=== PATIENT | male | born 1995 | race Caucasian/White ===

== ENCOUNTER 2018-12-20 05:02 | Observation (INO) ==
[2018-12-20 05:22] LABS: Hematocrit 41.2 % (37.5-50.1); Hemoglobin 14.9 g/dL (12.9-16.9); Mean Corpuscular HGB Conc 36.2 g/dL (31.6-35.5); Mean Corpuscular Hemoglobin 29.3 pg (28.0-33.3); Mean Corpuscular Volume 80.9 fL (83.0-100.0); Platelet Count 192 K/mcL (140-400); Red Blood Count 5.09 M/mcL (4.19-5.50); Red Cell Distribution Width 11.9 % (11.5-14.5)
[2018-12-20 05:25] LABS: VBG HCO3 17 mEq/L (21-27); VBG PCO2 21 mmHg (41-51); VBG PH 7.52 pH Units (7.32-7.42); VBG PO2 48 mmHg (25-50)
[2018-12-20 05:30] LABS: INR 1.1; Prothrombin Time 12.5 Seconds (9.4-12.1)
[2018-12-20 05:33] LABS: Activated Partial Thrombo Time 29.7 Seconds (26.0-36.0)
--- NOTE | 2018-12-20 05:33 | Emergency Department Note ---
Disposition Clinical Impression: New onset seizure, Hypophosphatemia, Tourette syndrome Disposition: Admitted As Inpatient Condition: Fair Forms: ED Satisfaction Letter General Adult HPI - General Chief complaint: ED Altered Mental Status Time Seen by Provider: 12/20/18 05:15 Source: EMS Limitations: altered mental status - History of Present Illness Pain Scale: 0 - Related Data Home Medications Medication Instructions Recorded Confirmed Unable To Obtain [Unable to Obtain] 09/20/17 09/20/17 Allergies Allergy/AdvReac Type Severity Reaction Status Date / Time Unable to Assess Allergy Unverified 12/20/18 05:11 Past Medical History - Past Medical History Medical history: Reports: non-contributory, other Psychiatric history: Reports: no psych history - Social History Smoking Status: Never smoker Smokeless Tobacco Status: No Alcohol use: Reports: none Drug use: Reports: none Physical Exam - General Limitations: altered mental status General appearance: obtunded Course Vital Signs Temperature 98.6 F 12/20/18 05:02 Pulse Rate 156 12/20/18 05:02 Respiratory Rate 40 12/20/18 05:02 Blood Pressure 155/68 12/20/18 05:02 O2 Sat by Pulse Oximetry 100 12/20/18 05:02 Temperature 98.6 F 12/20/18 05:02 Pulse Rate 156 12/20/18 05:02 Respiratory Rate 40 12/20/18 05:02 Blood Pressure 155/68 12/20/18 05:02 O2 Sat by Pulse Oximetry 100 12/20/18 05:02 Oxygen Delivery Oxygen Delivery Non Rebreather Mask Medical Decision Making - Lab Data Result diagrams: 12/20/18 05:06 12/20/18 05:06 Lab Results 12/20/18 12/20/18 12/20/18 Range/Units 05:06 05:06 05:06 WBC 6.0 (4.3-11.1) K/mcL RBC 5.09 (4.19-5.50) M/mcL Hgb 14.9 (12.9-16.9) g/dL Hct 41.2 (37.5-50.1) % MCV 80.9 L (83.0-100.0) fL MCH 29.3 (28.0-33.3) pg MCHC 36.2 H (31.6-35.5) g/dL RDW 11.9 (11.5-14.5) % Plt Count 192 (140-400) K/mcL MPV 11.0 (9.4-12.4) fL PT 12.5 H (9.4-12.1) Seconds INR 1.1 APTT 29.7 (26.0-36.0) Seconds VBG pH (7.32-7.42) pH Units VBG pCO2 (41-51) mmHg VBG pO2 (25-50) mmHg VBG HCO3 (21-27) mEq/L Sodium 139 (136-145) mEq/L Potassium 2.9 L (3.5-5.1) mEq/L Chloride 100 (98-107) mEq/L Carbon Dioxide 18 L (23-29) mEq/L BUN 10 (6-20) mg/dL Creatinine 1.04 (0.70-1.30) mg/dL Est GFR ( Amer) > 60 (> 60) Est GFR (Non-Af Amer) > 60 (> 60) BUN/Creatinine Ratio 10 (6-26) Glucose 117 H (70-105) mg/dL Calculated Osmolality 288 (280-300) Calcium 9.9 (8.6-10.3) mg/dL Phosphorus < 1.0 L* (2.7-4.5) mg/dL Magnesium 1.7 (1.6-2.6) mg/dL Total Bilirubin 1.9 H (0.3-1.0) mg/dL Direct Bilirubin 0.4 H (0.0-0.2) mg/dL Indirect Bilirubin 1.5 H (0.0-1.2) mg/dL AST 12 L (13-39) Units/L ALT 14 (7-52) Units/L Alkaline Phosphatase 57 (34-104) Units/L Troponin I < 0.03 (< 0.04) ng/mL Serum Total Protein 7.9 (6.4-8.9) g/dL Albumin 5.1 (3.5-5.7) g/dL Globulin 2.8 (2.4-3.5) g/dL Albumin/Globulin Ratio 1.8 (1.1-2.2) Ethyl Alcohol < 10 (Less than 10) mg/dL 12/20/18 Range/Units 05:22 WBC (4.3-11.1) K/mcL RBC (4.19-5.50) M/mcL Hgb (12.9-16.9) g/dL Hct (37.5-50.1) % MCV (83.0-100.0) fL MCH (28.0-33.3) pg MCHC (31.6-35.5) g/dL RDW (11.5-14.5) % Plt Count (140-400) K/mcL MPV (9.4-12.4) fL PT (9.4-12.1) Seconds INR APTT (26.0-36.0) Seconds VBG pH 7.52 H (7.32-7.42) pH Units VBG pCO2 21 L (41-51) mmHg VBG pO2 48 (25-50) mmHg VBG HCO3 17 L (21-27) mEq/L Sodium (136-145) mEq/L Potassium (3.5-5.1) mEq/L Chloride (98-107) mEq/L Carbon Dioxide (23-29) mEq/L BUN (6-20) mg/dL Creatinine (0.70-1.30) mg/dL Est GFR ( Amer) (> 60) Est GFR (Non-Af Amer) (> 60) BUN/Creatinine Ratio (6-26) Glucose (70-105) mg/dL Calculated Osmolality (280-300) Calcium (8.6-10.3) mg/dL Phosphorus (2.7-4.5) mg/dL Magnesium (1.6-2.6) mg/dL Total Bilirubin (0.3-1.0) mg/dL Direct Bilirubin (0.0-0.2) mg/dL Indirect Bilirubin (0.0-1.2) mg/dL AST (13-39) Units/L ALT (7-52) Units/L Alkaline Phosphatase (34-104) Units/L Troponin I (< 0.04) ng/mL Serum Total Protein (6.4-8.9) g/dL Albumin (3.5-5.7) g/dL Globulin (2.4-3.5) g/dL Albumin/Globulin Ratio (1.1-2.2) Ethyl Alcohol (Less than 10) mg/dL Attestation Statement - Attestation Attestation: I examined this patient and my medical decision-making was reviewed with the Resident Physician. I agree with the documented findings, disposition and treatment plan as described except to the extent set forth below. Patient arrives via paramedics with suspected seizure, no known history of seizure disorder. Was standing outside talking to one of his coworkers at 4 AM when he complained of lightheadedness which was followed by a period of altered mental status, then by but the paramedics described as a generalized tonic- clonic seizure. On arrival here, there is no movement of his legs, but he does have rhythmic shaking of both arms and was unresponsive to verbal stimuli. However, when I gave him a sternal rub, the arm movements immediately stopped, he opened his eyes widely, and began to sit up in bed. Within a few seconds afterwards, shaking activity started again. Both eyes deviated upward and to the right during shaking episode. No signs of tongue biting. Does not appear to have been incontinent. Blood sugar 79. Narrow complex tachycardia in the 150s in the field and on arrival here, gradually came down with administration of benzodiazepines. Sinus tachycardia on EKG without any ST segment or T-wave changes. Patient taken emergently to CT scan, accompanied by Dr. Pa and myself, intubation equipment brought with us in case he decompensated. On my first glance in the CT suite, no signs of subarachnoid hemorrhage or midline shift on the CT scan, radiology interpretation pending. On arrival back to the ED, he has now been free of any seizure-like activity for approximately 15 minutes, heart rate is down into the 100s. CT head neg per radiology. Phosphorous critically low <1.0. K+ 2.9, likely stress reaction. KPO4 infusion ordered. No urine yet, asked RN for straight cath. Parents have arrived, updated them, they confirm no prior seizure hx. Paged hospitalist and neurology to facilitate admission. Critical care time: I was directly and primarily involved in the care of this pt for 35 minutes excluding procedures.
[2018-12-20 05:46] LABS: Alanine Aminotransferase 14 Units/L (7-52); Albumin 5.1 g/dL (3.5-5.7); Albumin/Globulin Ratio 1.8 (1.1-2.2); Alkaline Phosphatase 57 Units/L (34-104); Aspartate Amino Transferase 12 Units/L (13-39); BUN/Creatinine Ratio 10 (6-26); Bilirubin,Direct 0.4 mg/dL (0.0-0.2); Bilirubin,Indirect 1.5 mg/dL (0.0-1.2); Bilirubin,Total 1.9 mg/dL (0.3-1.0); Blood Urea Nitrogen 10 mg/dL (6-20); Calcium 9.9 mg/dL (8.6-10.3); Carbon Dioxide 18 mEq/L (23-29); Chloride 100 mEq/L (98-107); Ethanol < 10 mg/dL (Less than 10); Globulin 2.8 g/dL (2.4-3.5); Glucose 117 mg/dL (70-105); Magnesium 1.7 mg/dL (1.6-2.6); Osmolality,Calculated 288 (280-300); Phosphorous < 1.0 mg/dL (2.7-4.5); Potassium 2.9 mEq/L (3.5-5.1); Sodium 139 mEq/L (136-145); Total Protein 7.9 g/dL (6.4-8.9); Troponin I < 0.03 ng/mL (< 0.04); eGFR For Non-African Americans > 60 (> 60)
[2018-12-20] MEDS ORDERED: Potassium Phosphate 44 MEQ in 0.9 % Sodium Chloride 250 ML IVPB ONE (05:50)
[2018-12-20] MEDS ORDERED: Gadolinium Contrast Agent (WT Based) IV PRN (05:54)
--- NOTE | 2018-12-20 05:58 | Emergency Department Note ---
Disposition Clinical Impression: New onset seizure, Hypophosphatemia, Tourette syndrome, Seizure-like activity Disposition: Admitted As Inpatient Condition: Fair Referrals: NONE,PCP [Primary Care Provider] - Time of Disposition: 06:15 General Adult HPI - General Chief complaint: ED Altered Mental Status Stated complaint: uresponsive/seizure activity Time Seen by Provider: 12/20/18 05:15 Source: EMS Mode of arrival: ambulatory Limitations: altered mental status Nursing Notes Reviewed: Yes Vital Signs Reviewed: Yes - History of Present Illness HPI Narrative: Patient is a 23-year-old male with a past medical history of Tourette's presents to the emergency department for evaluation of seizure-like activity. According to patient's coworkers he arrived to work at a normal baseline and a proximally 40 minutes prior to arrival to the ED the patient began to complain of lightheadedness, and began having seizure-like activity and which both arms were flexed to his chest with tonic-clonic like activity. This lasted for approximately 10 minutes that that point the patient arrived to the ED. IV was established and is given Pain Scale: 0 - Related Data Home Medications Medication Instructions Recorded Confirmed Unable To Obtain [Unable to Obtain] 09/20/17 09/20/17 Allergies Allergy/AdvReac Type Severity Reaction Status Date / Time No Known Allergies Allergy Verified 12/20/18 06:43 Limitations: ROS unobtainable due to patients medical condition Past Medical History - Past Medical History Medical history: Reports: non-contributory, other Psychiatric history: Reports: no psych history - Social History Smoking Status: Never smoker Smokeless Tobacco Status: No Alcohol use: Reports: none Drug use: Reports: none Physical Exam - General Limitations: altered mental status General appearance: obtunded - Head Head exam: atraumatic, normocephalic, normal inspection - Eye Eye exam: Present: normal appearance, PERRL - ENT ENT exam: normal exam, normal oropharynx, mucous membranes moist - Neck Neck exam: Present: normal inspection, full ROM, trachea midline - Chest Chest inspection: Present: normal inspection, symmetric chest wall rise - Respiratory Respiratory exam: Present: normal lung sounds bilaterally. Absent: respiratory distress, wheezes - Cardiovascular Cardiovascular exam: Present: tachycardia, normal heart sounds, +S1, +S2 - Abdominal Exam Abdominal exam: Present: soft, Non-Tender. Absent: tenderness, distention, guarding, rebound, rigidity - Extremities Exam Extremities exam: Present: normal inspection, full ROM, normal capillary refill. Absent: tenderness - Back Exam Back exam: Present: normal inspection - Expanded Neurological Exam Patient oriented to: Present: person, time (post-ictal) Speech: Present: fluid speech Cranial nerves: EOM function (II, III, IV, ): Normal Motor strength - LUE: 4/5 Motor strength - RUE: 4/5 Motor strength - LLE: 4/5 Motor strength - RLE: 4/5 Coma Scale Eye Opening: To Voice Coma Scale Motor Response: Localizes to Pain Coma Scale Verbal Response: Confused Coma Scale Total: 12 - Skin Skin exam: Present: warm, dry, intact, normal color Course Course Narrative: Patient initially presented immersed department what appeared to be seizure-like activity with both arms flexed and eye deviation to the right. However, with sternal rubbing the patient would pop up and sit up in the bed but then continue back into the seizure-like activity. He received 2 mg of IV Versed which broke his seizure. He did not appear to be in a somewhat postictal state. He followed commands and open his eyes to voice. Throughout the seizure-like activity he was very tachycardic at 140 and he is also intermittently hypoxic down to the upper 70s which improved with oxygenation. Patient went to a stat head CT which was negative. His lab workup revealed a significant hypophosphatemia. I discussed the patient's case further with the patient's parents when they arrived they state that the patient is not been complaining of any illness like symptoms and no seizure disorder or recent medication changes. The patient continues to be seizure activity free. I discussed the patient's case with Dr. Peñaloza, he agrees to consult with the patient and recommends MRI as well as an EEG to evaluate for further seizure activity otherwise hold on antiepileptics at this time and urine benzos for further seizure-like activity. Discussed patient's case with Dr. Mera and he agreed to accept the patient. Vital Signs Temperature 98.6 F 12/20/18 05:02 Pulse Rate 156 12/20/18 05:02 Respiratory Rate 40 12/20/18 05:02 Blood Pressure 155/68 12/20/18 05:02 O2 Sat by Pulse Oximetry 100 12/20/18 05:02 Temperature 98.6 F 12/20/18 05:02 Pulse Rate 112 12/20/18 06:32 Respiratory Rate 14 12/20/18 06:32 Blood Pressure 132/82 12/20/18 06:32 O2 Sat by Pulse Oximetry 100 12/20/18 06:32 Oxygen Delivery Oxygen Delivery Room Air Medical Decision Making - Medical Records Medical records reviewed: Yes I reviewed the patient's medical records. - Lab Data Lab results reviewed: Yes I reviewed the patient's lab results. Result diagrams: 12/20/18 05:06 12/20/18 05:06 Lab Results 12/20/18 12/20/18 12/20/18 Range/Units 05:06 05:06 05:06 WBC 6.0 (4.3-11.1) K/mcL RBC 5.09 (4.19-5.50) M/mcL Hgb 14.9 (12.9-16.9) g/dL Hct 41.2 (37.5-50.1) % MCV 80.9 L (83.0-100.0) fL MCH 29.3 (28.0-33.3) pg MCHC 36.2 H (31.6-35.5) g/dL RDW 11.9 (11.5-14.5) % Plt Count 192 (140-400) K/mcL MPV 11.0 (9.4-12.4) fL PT 12.5 H (9.4-12.1) Seconds INR 1.1 APTT 29.7 (26.0-36.0) Seconds VBG pH (7.32-7.42) pH Units VBG pCO2 (41-51) mmHg VBG pO2 (25-50) mmHg VBG HCO3 (21-27) mEq/L Sodium 139 (136-145) mEq/L Potassium 2.9 L (3.5-5.1) mEq/L Chloride 100 (98-107) mEq/L Carbon Dioxide 18 L (23-29) mEq/L BUN 10 (6-20) mg/dL Creatinine 1.04 (0.70-1.30) mg/dL Est GFR ( Amer) > 60 (> 60) Est GFR (Non-Af Amer) > 60 (> 60) BUN/Creatinine Ratio 10 (6-26) Glucose 117 H (70-105) mg/dL Calculated Osmolality 288 (280-300) Calcium 9.9 (8.6-10.3) mg/dL Phosphorus < 1.0 L* (2.7-4.5) mg/dL Magnesium 1.7 (1.6-2.6) mg/dL Total Bilirubin 1.9 H (0.3-1.0) mg/dL Direct Bilirubin 0.4 H (0.0-0.2) mg/dL Indirect Bilirubin 1.5 H (0.0-1.2) mg/dL AST 12 L (13-39) Units/L ALT 14 (7-52) Units/L Alkaline Phosphatase 57 (34-104) Units/L Troponin I < 0.03 (< 0.04) ng/mL Serum Total Protein 7.9 (6.4-8.9) g/dL Albumin 5.1 (3.5-5.7) g/dL Globulin 2.8 (2.4-3.5) g/dL Albumin/Globulin Ratio 1.8 (1.1-2.2) TSH 0.606 (0.340-5.600) mcIU/mL Urine Color (Yellow) Urine Clarity (Clear) Urine pH (5.0-8.0) pH Units Ur Specific [place] (1.010-1.025) Urine Protein (Neg-Trace) mg/dL Urine Glucose (UA) (Normal) mg/dL Urine Ketones (Negative) mg/dL Urine Blood (Negative) Urine Nitrite (Negative) Urine Bilirubin (Negative) Urine Urobilinogen (Normal) mg/dL Ur Leukocyte Esterase (Negative) Ur Culture Indicated? (NO) Urine Opiates Screen (Vatsjb=234) ng/mL Ur Barbiturates Screen (Fmmgcv=497) ng/mL Ur Phencyclidine Scrn (Cutoff=25) ng/mL Ur Amphetamines Screen (Ntcwlk=7562) ng/mL U Benzodiazepines Scrn (Tpxcbt=817) ng/mL Urine Cocaine Screen (Cutoff= 300) ng/mL U Marijuana (THC) Screen (Cutoff = 50) ng/mL Ur Drug Screen Interp Ethyl Alcohol < 10 (Less than 10) mg/dL 12/20/18 12/20/18 12/20/18 Range/Units 05:22 06:02 06:02 WBC (4.3-11.1) K/mcL RBC (4.19-5.50) M/mcL Hgb (12.9-16.9) g/dL Hct (37.5-50.1) % MCV (83.0-100.0) fL MCH (28.0-33.3) pg MCHC (31.6-35.5) g/dL RDW (11.5-14.5) % Plt Count (140-400) K/mcL MPV (9.4-12.4) fL PT (9.4-12.1) Seconds INR APTT (26.0-36.0) Seconds VBG pH 7.52 H (7.32-7.42) pH Units VBG pCO2 21 L (41-51) mmHg VBG pO2 48 (25-50) mmHg VBG HCO3 17 L (21-27) mEq/L Sodium (136-145) mEq/L Potassium (3.5-5.1) mEq/L Chloride (98-107) mEq/L Carbon Dioxide (23-29) mEq/L BUN (6-20) mg/dL Creatinine (0.70-1.30) mg/dL Est GFR ( Amer) (> 60) Est GFR (Non-Af Amer) (> 60) BUN/Creatinine Ratio (6-26) Glucose (70-105) mg/dL Calculated Osmolality (280-300) Calcium (8.6-10.3) mg/dL Phosphorus (2.7-4.5) mg/dL Magnesium (1.6-2.6) mg/dL Total Bilirubin (0.3-1.0) mg/dL Direct Bilirubin (0.0-0.2) mg/dL Indirect Bilirubin (0.0-1.2) mg/dL AST (13-39) Units/L ALT (7-52) Units/L Alkaline Phosphatase (34-104) Units/L Troponin I (< 0.04) ng/mL Serum Total Protein (6.4-8.9) g/dL Albumin (3.5-5.7) g/dL Globulin (2.4-3.5) g/dL Albumin/Globulin Ratio (1.1-2.2) TSH (0.340-5.600) mcIU/mL Urine Color Yellow (Yellow) Urine Clarity Clear (Clear) Urine pH 7.0 (5.0-8.0) pH Units Ur Specific [place] < 1.005 L (1.010-1.025) Urine Protein Negative (Neg-Trace) mg/dL Urine Glucose (UA) Normal (Normal) mg/dL Urine Ketones 15 H (Negative) mg/dL Urine Blood Negative (Negative) Urine Nitrite Negative (Negative) Urine Bilirubin Negative (Negative) Urine Urobilinogen Normal (Normal) mg/dL Ur Leukocyte Esterase Negative (Negative) Ur Culture Indicated? NO (NO) Urine Opiates Screen Negative (Vianzv=052) ng/mL Ur Barbiturates Screen Negative (Fabfek=085) ng/mL Ur Phencyclidine Scrn Negative (Cutoff=25) ng/mL Ur Amphetamines Screen Negative (Cofcxh=4935) ng/mL U Benzodiazepines Scrn Negative ([place]=572) ng/mL Urine Cocaine Screen Negative (Cutoff= 300) ng/mL U Marijuana (THC) Screen Negative (Cutoff = 50) ng/mL Ur Drug Screen Interp See Below Ethyl Alcohol (Less than 10) mg/dL - Radiology Data Radiology results reviewed: Yes I reviewed the patient's radiology results. Chest X-Ray 12/20/18 05:12 IMPRESSION: No acute findings. D/ / Gildardo Kim / Gildardo Kim Interpreting Provider: Gildardo Kim Head CT 12/20/18 05:14 IMPRESSION: No acute intracranial abnormality. D/ / Gildardo Kim / Gildardo Kim Interpreting Provider: Gildardo Kim - EKG Data EKG #1 EKG attestation: Yes I reviewed and interpreted this EKG. EKG results narrative: EKG done at 5:07 shows sinus tachycardia rate 143 bpm. Normal axis. [place], QRS within normal limits. QTc is prolonged. No signs of ischemia.
[2018-12-20 06:01] LABS: Thyroid Stimulating Hormone 0.606 mcIU/mL (0.340-5.600)
[2018-12-20 06:21] LABS: Bilirubin,Urine Negative (Negative); Blood,Urine Negative (Negative); Clarity,Urine Clear (Clear); Color,Urine Yellow (Yellow); Glucose,Urine (UA) Normal (Normal); Ketones,Urine 15 mg/dL (Negative); Leukocyte Esterase,Urine Negative (Negative); Nitrite,Urine Negative (Negative); Protein,Urine Negative (Neg-Trace); Specific Gravity,Urine < 1.005 (1.010-1.025); Urobilinogen,Urine Normal (Normal)
[2018-12-20 06:27] LABS: Amphetamine Screen,Urine Negative ng/mL (Cutoff=1000); Barbiturate Screen,Urine Negative ng/mL (Cutoff=200)
[2018-12-20 06:28] LABS: Benzodiazepines Screen,Urine Negative ng/mL (Cutoff=300); Cannabinoid Screen,Urine Negative ng/mL (Cutoff = 50); Cocaine Screen,Urine Negative ng/mL (Cutoff= 300); Opiate Screen,Urine Negative ng/mL (Cutoff=300); Phencyclidine Screen,Urine Negative ng/mL (Cutoff=25)
[2018-12-20] MEDS ORDERED: *HR* Midazolam HCl 5 MG/5 ML VIAL IVP ONE (06:30)
[2018-12-20] MEDS ORDERED: *HR* Midazolam HCl 2 MG/2 ML VIAL IV ONE (06:30)
[2018-12-20] MEDS ORDERED: Naloxone 0.4 MG/ML INJ IVP PRN (07:54)
--- NOTE | 2018-12-20 08:10 | Internal Med History&Physical ---
Date of Encounter: 12/20/18 Time of Encounter: 08:06 Internal Medicine - H&P: HPI Chief complaint: seizure like activity Admitted From: Home Plans for Post Hospital Care: Home History of present illness: Mr. Painting is a 23 year old male with the past medical history of towards syndrome presented to ER with seizure-like activity after he passed out. 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 Patient was reportedly talking and standing with a coworker for about 20 minutes. According to coworker patient was nonresponsive for about 30 seconds and was altered for next one and half hour. Patient was noted to be sweating at the time. Patient was noted to have seizure-like activity with movement of arms and eye deviation to the right. However was noted to sit up on sternal rub and continue back into seizure-like activity after. Patient received 2 mg of Versed in ER and did not have any other seizure-like activity after. He was tachycardic in ER and slightly hypoxic. He had some difficulty breathing before the episode. There was no episode of incontinence of urine or stool or tongue biting noted. Yumiko t had a workup done in ER with head CT which was unremarkable and BMP showing significant hypophosphatemia and hypokalemia. There is no history of seizures in past. Patient has been prescribed medication for correct which has been not taking for past few months. He denies IV drug use or other drug use. He denied taking any new medication During interview patient complains of some headache and feeling tired and sore. He denies any tingling numbness however previously he had some tingling in his arms when he came in. Denied any abdominal pain or chest pain or difficulty breathing. Denies urinary or bladder complaint. ER contacted neurology who recommended MRI and EEG. Patient was admitted for further management. Past Med Surg Social Fam HX - Past Medical History Medical history: other Additional medical history: tourettes Psychiatric history: no psych history - Past Surgical History Surgical History: no surgical history - Social History Smoking Status: Never smoker Smokeless Tobacco Status: No Alcohol use: occasionally Drug use: none - Family History Mother Hx Family Neurologic Disorders: No (no history of epilepsy or seizures) Father Hx Family Neurologic Disorders: No (no history of epilepsy or seizures) Internal Medicine - H&P: Meds Unable To Obtain [Unable to Obtain] 09/20/17 [History] Allergy/AdvReac Type Severity Reaction Status Date / Time No Known Allergies Allergy Verified 12/20/18 06:43 All Systems PM: A 10-system review of systems was performed and is negative for pertinent findings except as documented above in the HPI. - Constitutional Vitals: Temp Pulse Resp BP Pulse Ox 98.6 F 112 14 132/82 100 12/20/18 05:02 12/20/18 06:32 12/20/18 06:32 12/20/18 06:32 12/20/18 06:32 Exam: Constitutional: Vitals as noted. Conversant. No Apparent Distress. Eyes : Sclera white, conjunctiva clear, no lid lag, PEARLA. ENT : Grossly normal hearing. Oropharyngeal exam unremarkable. No JVD, no thyromegaly or mass. Respiratory : Clear to auscultation bilaterally. No accessory muscle use, rales, rhonchi or wheezes Cardiovascular : tachycardic, +S1, +S2. no murmur, gallop, rubs. No chest wall tenderness GI/Abdominal : Soft, Non-tender, Non-distended, normal bowel sounds, soft, no peritoneal signs. no orgenomegaly or mass appreciated. no hernia. Musculoskeletal: no deformity noted. no edema or cyanosis. warm extremities, pulses palpable and symmetrical in UE/LE. no calf tenderness. Neurological: AO X3, CN II-XII grossly intact, grossly normal sensory exam. 4/5 strength in all extremities Skin: No skin rash, lesions or ulcers noted. Internal Med - H&P Results - Labs CBC & Chem 7: 12/20/18 05:06 12/20/18 05:06 Labs: Short CBC 12/20/18 Range/Units 05:06 WBC 6.0 (4.3-11.1) K/mcL Hgb 14.9 (12.9-16.9) g/dL Hct 41.2 (37.5-50.1) % Plt Count 192 (140-400) K/mcL BMP 12/20/18 05:06 Sodium 139 Potassium 2.9 L Chloride 100 Carbon Dioxide 18 L BUN 10 Creatinine 1.04 Glucose 117 H Calcium 9.9 Cardiac Enzymes 12/20/18 Range/Units 05:06 Troponin I < 0.03 (< 0.04) ng/mL Liver Function 12/20/18 Range/Units 05:06 Total Bilirubin 1.9 H (0.3-1.0) mg/dL Direct Bilirubin 0.4 H (0.0-0.2) mg/dL AST 12 L (13-39) Units/L ALT 14 (7-52) Units/L Alkaline Phosphatase 57 (34-104) Units/L Albumin 5.1 (3.5-5.7) g/dL Urine 12/20/18 Range/Units 06:02 Urine Color Yellow (Yellow) Urine Clarity Clear (Clear) Urine pH 7.0 (5.0-8.0) pH Units Ur Specific [place] < 1.005 L (1.010-1.025) Urine Protein Negative (Neg-Trace) mg/dL Urine Glucose (UA) Normal (Normal) mg/dL - ABG Interpretation ABG results: 12/20/18 05:22 VBG pH 7.52 H VBG pCO2 21 L VBG pO2 48 VBG HCO3 17 L - EKG Data -: EKG Interpreted by Myself EKG shows normal: sinus rhythm Rate: tachycardia - Impressions ITS Impressions Chest X-Ray 12/20/18 05:12 IMPRESSION: No acute findings. D/ / Gildardo Kim / Gildardo Kim Interpreting Provider: Gildardo Kim Head CT 12/20/18 05:14 IMPRESSION: No acute intracranial abnormality. D/ / Gildardo Kim / Gildardo Kim Interpreting Provider: Gildardo Kim Brain MRI 12/20/18 05:54 IMPRESSION: Normal MRI of the brain without findings to explain the patient's seizures. D/ / Adriel Floyd MD / Adriel Floyd MD Interpreting Provider: Adriel Floyd MD - Assessment and plan (1) Seizure-like activity Current Visit: Yes Status: Acute Assessment and plan: - CT without evidence of any acute intracranial abnormality. Magnesium and calcium normal. Has hypokalemia and hypophosphatemia. - U tox negative - We will obtain EEG and MRI - Possibly related to severe hypophosphatemia - Neurology consulted (2) Hypokalemia Current Visit: Yes Status: Acute Assessment and plan: - Repeated potassium phosphate. - Repeat BMP to recheck levels (3) Elevated bilirubin Current Visit: Yes Status: Acute Assessment and plan: - No previous history of liver disease. All remaining normal. Mildly elevated PT - AST ALTs and alkaline phosphatase normal - Obtain acetaminophen levels and hepatic profile (4) Hypophosphatemia Current Visit: Yes Status: Acute Assessment and plan: - Unclear etiology - Renal function appears normal. - Obtain Vitamin D and PTH levels - Potassium phosphate was repeated. - Repeat levels and replete as needed IV - Will consider 24 hr urine phosphate and nephrology consult depending on workup (5) Tourette syndrome Current Visit: Yes Status: Acute Assessment and plan: - not taking any medication - monitor for now - Time Spent With Patient Total time spent is greater than 50% in coordination of care (as documented) at patient's floor/unit and/or counseling patient:
[2018-12-20 09:45] LABS: Potassium 3.7 mEq/L (3.5-5.1)
[2018-12-20 09:46] LABS: BUN/Creatinine Ratio 10 (6-26); Blood Urea Nitrogen 9 mg/dL (6-20); Calcium 9.9 mg/dL (8.6-10.3); Carbon Dioxide 26 mEq/L (23-29); Chloride 103 mEq/L (98-107); Glucose 103 mg/dL (70-105); Osmolality,Calculated 283 (280-300); Sodium 137 mEq/L (136-145); eGFR For Non-African Americans > 60 (> 60)
[2018-12-20 09:51] LABS: Hepatitis B Surface Antigen Nonreactive (Nonreactive)
--- NOTE | 2018-12-20 10:11 | Neurosurgical History&Physical ---
Addendum entered and electronically signed by Alfred Qureshi MD 12/20/18 15:57: Pt was seen and examined, my medical decision was reviewed with the DOCTOR NATUROPATHIC, I agree with the documented findings, disposition and treatment plan, as described except to the extent set forth below. Though patient did have this looked like a seizure type of activity but the in the clinical context of multiple metabolic derangement it could be related to it especially with low glucose and very low phosphorus level. At this time I would not recommend any antiepileptic medication a list that is abnormality on EEG or MRI scan suggest continue to treat underlying metabolic dysfunction and monitor the patient. Alfred Qureshi MD Addendum entered and electronically signed by Alex Rivas 12/20/18 14:28: Original Note: Date of Encounter: 12/20/18 Time of Encounter: 10:11 Assessment and Plan (1) Syncope and collapse Current visit: Yes Status: Acute Presents s/p syncopal event this morning and witnessed decorticate posturing and convulsive activity of his BUE with loss of consciousness. Nerology has been consulted for syncope and seizure-like activity. The patient has had CT and MR imaging of the brain which per my review and radiologist read did not identify any acute intracranial abnormailty or organic cause of seizures. He does not have any prior h/o seizures and has not had any recurrent seizure-like activity. He is most likely experiencing syncope-induced convulsions. However, I do recommend obtaining an EEG for further evaluation of seizure activity. At this time I do not feel that he needs any antiepileptic medications. In regards to the syncopal event I do feel that would be beneficial to obtain an echocardiogram and carotid Doppler studies to evaluate for any potentiating causes. The patient was noted to have hypophosphatemia and hypokalemia. Hypokalemia may have triggered an arrhythmic event leading to the syncopal episode. Defer to primary team for management of electrolyte disturbances. I do recommend continuous cardiac monitoring. Otherwise, the patient is back to baseline status and his neuro exam does not reveal any lateralizing or focal deficits. He remains hemodynamically stable. At this time neurology will continue to follow. (2) Seizure-like activity Current visit: Yes Status: Acute (3) Hypophosphatemia Current visit: Yes Status: Acute (4) Hypokalemia Current visit: Yes Status: Acute History of Present Illness Chief complaint: Seizure-like activity and syncope HPI: Mr. Painting is a 23 year old male with a past medical history of Tourette's but otherwise no additional medical history. Neurology has been consulted with concerns for syncope and seizure. Patient presents to [facility] today S/P a syncopal event with witnessed seizure-like activity. The patient does not have any prior seizure history. 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 He reports that his coworkers informed him he was unresponsive for approximately 30 seconds and having decorticate posturing. He cannot recall any of the events during the unresponsive episode, he denies any tongue biting or loss of bowel or bladder function. He reports that he had altered mental status for approximately 1-1/2 hours after the loss of consciousness but this is since subsided. He does note that his coworkers were able to obtain a blood glucose after the event and he was found to be hypoglycemic. He has not had any return of syncope or seizure activity. He denies any recent illnesses or ill contacts, headaches, visual changes, tinnitus, hearing changes/loss, unilateral extremity weakness or paresthesias, palpitation, irregular heartbeat, tachycardia, chest pain, or shortness of breath. In the ED he had a CT of the brain which showed no acute intracranial abnormality. CXR was without acute pulmonary process. Per review of his labs that did identify hypophosphatemia and hypokalemia for which I have no clear etiology. TSH was 0.606 and PTH intact 48.2. Vitamin D levels are low with a result of 12 ng/mL. Urinalysis was not indicative of UTI and toxicology was negative. Hepatitis serology panel obtained and found to be nonreactive. Past Med Surg Social Fam HX - Past Medical History Medical history: other Additional medical history: tourettes Psychiatric history: no psych history - Past Surgical History Surgical History: no surgical history - Social History Smoking Status: Never smoker Smokeless Tobacco Status: No Alcohol use: occasionally Drug use: none - Family History Mother Hx Family Neurologic Disorders: No (no history of epilepsy or seizures) Father Hx Family Neurologic Disorders: No (no history of epilepsy or seizures) Medications and Allergies Unable To Obtain [Unable to Obtain] 09/20/17 [History] Allergy/AdvReac Type Severity Reaction Status Date / Time No Known Allergies Allergy Verified 12/20/18 06:43 All Systems: The remainder of the systems were reviewed and are negative Review of Systems: REVIEW OF SYSTEMS GENERAL: Negative for any nausea, vomiting, fevers, chills, or weight loss, fatigue NEUROLOGIC: Negative for any visual changes, facial asymmetry, dysphagia, dysarthria, hemiparesis, hemisensory deficits, vertigo, ataxia. - - + Decorticate posturing PSYCH: - agitation/irritability, anxiety HEENT: Negative for any head trauma, neck trauma, neck stiffness, photophobia, phonophobia, dysphagia, voice changes, sinusitis, rhinitis, tinnitus, decreased hearing, ear discharge or fullness,. CARDIAC: Negative for any chest pain, dyspnea on exertion, HTN, peripheral edema. GENITOURINARY: Negative for any dysuria, hematuria, incontinence. ENDOCRINE: - Thyroid trouble, heat/cold intolerance, excessive sweating, thirst, hunger, increased urination MUSCULOSKELETAL: Joint pain, stiffness, loss of strength, Joint swelling, muscle pain/swelling, limitations to motor activity or tolerance INTEGUMENTARY: Negative for any rashes, eruptions, dryness, changes in skin/hair, nails RHEUMATOLOGIC: Negative for any joint pains, photosensitive rashes, history of vasculitis or kidney problems. HEMATOLOGIC: Negative for any abnormal bruising, frequent infections or bleeding. Physical Examination - Vital Signs Vital Signs: Initial Vital Signs Temp Pulse Resp BP Pulse Ox 98.6 F 156 40 155/68 100 12/20/18 05:02 12/20/18 05:02 12/20/18 05:02 12/20/18 05:02 12/20/18 05:02 - Exam Exam: Examination: General Examination: *CONSTITUTIONAL: Temp 90 9F, HR 90, RR 14 and 98% on room air, BP 120/68 *GENERAL APPEARANCE OF PATIENT appears healthy and well groomed *EYES: pupils equal, round, reactive to light and accommodation, conjunctiva clear without masses or ulcerations, fundi normal. *CARDIOVASCULAR RRR, S1, S2, no mumurs, rubs, or gallops, no peripheral edema, distal temperature normal, dorsalis pedis pulses normal. Musculoskeletal: *GAIT AND STATION normal, sitting up in bed with erect posture without assistance, no abnormalities such as broad base gait or spasticity *ASSESSMENT OF MUSCLE STRENGTH IN THE UPPER AND LOWER EXTREMITIES bilateral deltoid, bicep, tricep, marketing team lead strength, hip flexors ,anterior tibialis, dorsoflexion of the foot 5/5 *MUSCLE TONE IN THE UPPER AND LOWER EXTREMITIES normal. No abnormal mov ements, fasciculations or atrophy identified. Neurological: *ORIENTATION to person, place, time and situation *RECURRENT AND REMOTE MEMORY intact, able to recall events of this morning leading up to loss of consciousness and seizure-like activity *ATTENTION AND CONCENTRATION are normal, patient remains focused *LANGUAGE FUNCTION no significant aphasia or dysarthia was noted. *FUND OF KNOWLEDGE aware of current events, past history, vocabulary *MENTAL attention span and concentration normal, able to follow commands, appropriate insight and judgment. *CN II optic fundi were normal, no papilledema noted. *CN III,IV, PERRLA extraocular eye movements were full, no nystagmus and no ptosis noted. *CN V shows normal sensation and jaw opens symmetrically. *CN VII shows normal facial movement symmetrically, upper and lower bila terally. *CN VIII shows no significant hearing loss on examination in the office. *CN IX,,X palate elevated symmetrically and normal gag reflex was noted. *CN XI normal strength in the sternocleidomastoid muscles, symmetrical shoulder shrugging. *CN XII tongue protruded in the midline, with normal strength and movement. *SENSORY EXAMINATION pinprick sensation intact, and light touch(vibration sense). *REFLEXES: deep tendon reflexes were normal and symmetrical , grade 2/4 diffusely, no pathological reflexes were noted. *CEREBELLAR TESTING normal finger to nose, heel/knee/rose *PAIN LEVEL 0/10 Results - Laboratory Findings CBC and BMP: 12/20/18 05:06 12/20/18 08:32 Abnormal lab findings: Abnormal lab results MCV 80.9 fL (83.0-100.0) L 12/20/18 05:06 MCHC 36.2 g/dL (31.6-35.5) H 12/20/18 05:06 PT 12.5 Seconds (9.4-12.1) H 12/20/18 05:06 VBG pH 7.52 pH Units (7.32-7.42) H 12/20/18 05:22 VBG pCO2 21 mmHg (41-51) L 12/20/18 05:22 VBG HCO3 17 mEq/L (21-27) L 12/20/18 05:22 Phosphorus < 1.0 mg/dL (2.7-4.5) L* 12/20/18 05:06 Total Bilirubin 1.9 mg/dL (0.3-1.0) H 12/20/18 05:06 Direct Bilirubin 0.4 mg/dL (0.0-0.2) H 12/20/18 05:06 Indirect Bilirubin 1.5 mg/dL (0.0-1.2) H 12/20/18 05:06 AST 12 Units/L (13-39) L 12/20/18 05:06 Ur Specific [place] < 1.005 (1.010-1.025) L 12/20/18 06:02 Urine Ketones 15 mg/dL (Negative) H 12/20/18 06:02 Acetaminophen < 10 mcg/mL (10-20) L 12/20/18 08:22 - Diagnostic Findings EKG: image reviewed Chest x-ray: image reviewed Additional findings: I have personally reviewed the patient's MRI and confinement to intracranial abnormalities or organic cause of seizure.
[2018-12-20 10:20] LABS: Hepatitis B Core IgM Nonreactive (Nonreactive); Hepatitis C Virus Antibody Nonreactive (Nonreactive)
[2018-12-20 10:22] LABS: Hepatitis A Antibody IgM Nonreactive (Nonreactive)
[2018-12-20] MEDS ORDERED: *HR* LORazepam 2 MG/ML VIAL IM PRN (12:30)
[2018-12-20 13:24] LABS: Phosphorous 4.5 mg/dL (2.7-4.5)
[2018-12-20] MEDS ORDERED: *HR* LORazepam 2 MG/ML VIAL IM SCH (16:00)
--- NOTE | 2018-12-20 16:01 | EEG/EMG/Oth Biometrics Report ---
EEG Procedure Report EEG Procedure: Routine EEG Procedure Note: This is a routine 21 channel digital EEG performed utilizing 10- 20 international electrode placement system. FINDINGS: Patient has a predominant waking background frequency that is average voltage 8 to 10 Hertz alpha activity in the posterior region, normal amplitude symmetrical over the both hemispheres reactive to eyes opening and closing record continued to show alpha activity intermixed with some theta off and on, no abnormal activity recorded, predominantly no evidence of any spike wave discharges or any lateralizing abnormalities, Photic stimulation and hyperventilation did not produce any convulsive response. Intermittent EMG artifacts were noted. Stage II sleep was not achieved. Impression: Normal awake drowsy electroencephalogram. No epileptiform discharges or any other paroxysmal activities noted. ( Please note that normal EEG does not exclude the diagnosis of seizures or epilepsy, clinical correlation is suggested)
--- NOTE | 2018-12-21 10:22 | Neurology Progress Note ---
<Alex Rivas - Last Filed: 12/21/18 12:51> Date of Encounter: 12/21/18 Time of Encounter: 10:22 Assessment and Plan (1) Syncope and collapse Status: Acute Neurology consulted for convulsive activity S/P syncope and collapse. MRI brain did not reveal any organic cause of convulsive activity. EEG did not reveal any epileptiform activity. He did have metabolic derangements on admission including hypokalemia, hypophosphatemia and he was hypoglycemic. Additionally, the patient is tachycardic with activity with heart rate at times in the 150s. Per my assessment this morning he does not appear to have any focal or lateralizing neurological deficits. He has not had any return of syncope or convulsive activity. Given negative MRI and EEG findings I do not believe this to be a seizure event. The convulsive activity could have been the result of the syncopal event however, the patient does have metabolic derangements which could also explain the convulsions. Recommendations were to continue to treat the underlying metabolic dysfunction. Additionally, he has tachycardic and at times has a heart rate in the 150s with activity. Given the tachycardia one should consider an arrhythmic cause of syncope. The convulsions could also be syncope-induced. Defer to primary team for workup of tachycardia. At this time I do not recommend any antiepileptic medications. I believe that a syncopal workup with echocardiogram and carotid Doppler studies is within reason. Neurology will sign off please reconsult should any further need arise. (2) Seizure-like activity Status: Acute (3) Hypophosphatemia Status: Resolved (4) Hypokalemia Status: Resolved Subjective Principal diagnosis: Syncope and collapse, convulsive activity S/P syncope; concern for seizures Interval history: Presented following syncope and collapse. S/P syncopal event patient was noted to have convulsive activity. Neurology consult with concern for seizures. Patient seen and examined at bedside today. He has not had any return of syncope or convulsive activity. He is reporting that he feels that he is almost back to baseline. He does note that he has easily fatigued and his heart feels like it is beating fast. Review of telemetry did reveal tachycardia and this has been discussed with primary team. Otherwise he denies any new neurological complaints or concerns. Objective - Constitutional Vitals: Temp Pulse Resp BP Pulse Ox 97.9 F 84 16 111/66 98 02/08/19 07:25 12/21/18 10:05 12/21/18 07:25 12/21/18 10:05 12/21/18 07:25 Exam: Examination: General Examination: *CONSTITUTIONAL: Temperature 97.5 F, HR 80, RR 16 and 97% on room air, BP 110/70. *GENERAL APPEARANCE OF PATIENT appears healthy and well groomed *EYES: pupils equal, round, reactive to light and accommodation, conjunctiva clear without masses or ulcerations, fundi normal. *CARDIOVASCULAR RRR, S1, S2, no mumurs, rubs, or gallops, no peripheral edema, distal temperature normal, dorsalis pedis pulses normal. Musculoskeletal: *GAIT AND STATION normal, with normal Romberg testing, no abnormalities such as broad base gait or spasticity *ASSESSMENT OF MUSCLE STRENGTH IN THE UPPER AND LOWER EXTREMITIES bilateral deltoid, bicep, tricep, milieu coordinator strength, hip flexors ,anterior tibialis, dorsoflexion of the foot 5/5 *MUSCLE TONE IN THE UPPER AND LOWER EXTREMITIES normal. No abnormal movements, fasciculations or atrophy identified. Neurological: *ORIENTATION to time and place *RECURRENT AND REMOTE MEMORY intact *ATTENTION AND CONCENTRATION are normal *LANGUAGE FUNCTION no significant aphasia or dysarthia was noted. *FUND OF KNOWLEDGE aware of current events, past history, vocabulary *MENTAL attention span and concentration normal. *SENSORY EXAMINATION pinprick sensation intact, and light touch(vibration sense). *REFLEXES: deep tendon reflexes were normal and symmetrical , grade 2/4 diffusely, no pathological reflexes were noted. *CEREBELLAR TESTING normal finger to nose, heel/knee/rose, and tandem walk. *PAIN LEVEL 0/10 Results - Laboratory Findings CBC and BMP: 12/20/18 05:06 12/20/18 08:32 Abnormal lab findings: Abnormal lab results MCV 80.9 fL (83.0-100.0) L 12/20/18 05:06 MCHC 36.2 g/dL (31.6-35.5) H 12/20/18 05:06 PT 12.5 Seconds (9.4-12.1) H 12/20/18 05:06 VBG pH 7.52 pH Units (7.32-7.42) H 12/20/18 05:22 VBG pCO2 21 mmHg (41-51) L 12/20/18 05:22 VBG HCO3 17 mEq/L (21-27) L 12/20/18 05:22 Total Bilirubin 1.9 mg/dL (0.3-1.0) H 12/20/18 05:06 Direct Bilirubin 0.4 mg/dL (0.0-0.2) H 12/20/18 05:06 Indirect Bilirubin 1.5 mg/dL (0.0-1.2) H 12/20/18 05:06 AST 12 Units/L (13-39) L 12/20/18 05:06 25-OH Vitamin D Total 12 ng/mL (30-80) L 12/20/18 08:32 Ur Specific [place] < 1.005 (1.010-1.025) L 12/20/18 06:02 Urine Ketones 15 mg/dL (Negative) H 12/20/18 06:02 Acetaminophen < 10 mcg/mL (10-20) L 12/20/18 08:22 Consult Discharge Plan - Plan Instructions: Syncope (DC) Referrals: [facility] [Provider Group] (follow up appointment has been requested. ) Neurology [facility] [Provider Group] (follow up appointment has been requested. ) Saba Schwarz, [employer] [Primary Care Provider] - (Unable to make follow up appointment due to office being closed on weekend. Please call Monday to schedule follow up appointment 7-10 days from date of discharge. ) Prescriptions: Metoprolol XL (24 HR) Succ [Toprol Xl] 12.5 mg PO DAILY #30 tab.er.24h <Alfred Qureshi I - Last Filed: 12/25/18 10:27> Date of Encounter: 12/21/18 Assessment and Plan (1) Seizure-like activity Status: Acute (2) Hypophosphatemia Status: Resolved (3) Hypokalemia Status: Resolved (4) Syncope and collapse Status: Acute Pt was seen and examined, my medical decision was reviewed with the [employer], I agree with the documented findings, disposition and treatment plan, as described except to the extent set forth below Alfred Qureshi MD Objective - Constitutional Vitals: Temp Pulse Resp BP Pulse Ox 97.5 F L 80 16 110/70 97 12/21/18 10:46 12/21/18 10:46 12/21/18 10:46 12/21/18 10:46 12/21/18 10:46 Results - Laboratory Findings CBC and BMP: 12/22/18 03:15 12/22/18 03:15 Abnormal lab findings: Abnormal lab results MCV 80.9 fL (83.0-100.0) L 12/20/18 05:06 MCHC 36.2 g/dL (31.6-35.5) H 12/20/18 05:06 PT 12.5 Seconds (9.4-12.1) H 12/20/18 05:06 VBG pH 7.52 pH Units (7.32-7.42) H 12/20/18 05:22 VBG pCO2 21 mmHg (41-51) L 12/20/18 05:22 VBG HCO3 17 mEq/L (21-27) L 12/20/18 05:22 Total Bilirubin 1.9 mg/dL (0.3-1.0) H 12/20/18 05:06 Direct Bilirubin 0.4 mg/dL (0.0-0.2) H 12/20/18 05:06 Indirect Bilirubin 1.5 mg/dL (0.0-1.2) H 12/20/18 05:06 AST 12 Units/L (13-39) L 12/20/18 05:06 25-OH Vitamin D Total 12 ng/mL (30-80) L 12/20/18 08:32 Ur Specific [place] < 1.005 (1.010-1.025) L 12/20/18 06:02 Urine Ketones 15 mg/dL (Negative) H 12/20/18 06:02 Acetaminophen < 10 mcg/mL (10-20) L 12/20/18 08:22
--- NOTE | 2018-12-21 11:49 | Internal Med Progress Note ---
Hospitalist Progress Note - Encounter Date of Encounter: 12/21/18 Time of Encounter: 11:47 - Subjective Interval History: Pt seen and examined in the room, he has no further seizure like activity. - Exam Vitals: Temp Pulse Resp BP Pulse Ox 97.5 F L 80 16 110/70 97 12/21/18 10:46 12/21/18 10:46 12/21/18 10:46 12/21/18 10:46 12/21/18 10:46 Exam: Constitutional: Vitals as noted. Conversant. No Apparent Distress. Eyes : Sclera white, conjunctiva clear, no lid lag, PEARLA. ENT : Grossly normal hearing. Oropharyngeal exam unremarkable. No JVD, no thyromegaly or mass. Respiratory : Clear to auscultation bilaterally. No accessory muscle use, rales, rhonchi or wheezes Cardiovascular : tachycardic, +S1, +S2. no murmur, gallop, rubs. No chest wall tenderness GI/Abdominal : Soft, Non-tender, Non-distended, normal bowel sounds, soft, no peritoneal signs. no orgenomegaly or mass appreciated. no hernia. Musculoskeletal: no deformity noted. no edema or cyanosis. warm extremities, pulses palpable and symmetrical in UE/LE. no calf tenderness. Neurological: AO X3, CN II-XII grossly intact, grossly normal sensory exam. 4/5 strength in all extremities Skin: No skin rash, lesions or ulcers noted. - Assessment and Plan (1) Seizure-like activity Current Visit: Yes Status: Acute Assessment and Plan: 12/20 - CT without evidence of any acute intracranial abnormality. Magnesium and calcium normal. Has hypokalemia and hypophosphatemia. - U tox negative - We will obtain EEG and MRI - Possibly related to severe hypophosphatemia - Neurology consulted 12/21 EEG no epileptic waveform. MRI no acute changes. Reviewed history again with pt, He had one similar episode a month ago. EKG and tele reviewed, besides several episodes of ST, no other malignant arrhythmia noted. Labs showed hyperventilation upon arrival. ECHO ordered today, orthostatic BP. Although vasovagal is likely the etiology, arrhythmia and seizure still cannot rule out at this time. (2) Hypophosphatemia Current Visit: Yes Status: Resolved (3) Tourette syndrome Current Visit: No Status: Chronic Assessment and Plan: - not taking any medication - monitor for now (4) Hypokalemia Current Visit: Yes Status: Resolved (5) Elevated bilirubin Current Visit: Yes Status: Acute Assessment and Plan: - No previous history of liver disease. All remaining normal. Mildly elevated PT - AST ALTs and alkaline phosphatase normal - Obtain acetaminophen levels and hepatic profile 12/21 will repeat LFP, seems dehydration related. - Time Spent with Patient Total time spent is greater than 50% in coordination of care (as documented) at patient's floor/unit and/or counseling patient: Greater than 35 minutes Plan of Care Discussed with: patient Internal Medicine: Result - Labs CBC & Chem 7: 12/20/18 05:06 12/20/18 08:32 Labs: BMP 12/20/18 08:32 Sodium 137 Potassium 3.7 D Chloride 103 Carbon Dioxide 26 BUN 9 Creatinine 0.88 Glucose 103 Calcium 9.9 - ABG Interpretation ABG results: PT/INR, D-dimer PT 12.5 Seconds (9.4-12.1) H 12/20/18 05:06 Consult Discharge Plan - Plan Referrals: NONE,PCP [Non-Partnered Physician] -
[2018-12-22 04:03] LABS: Hematocrit 39.1 % (37.5-50.1); Hemoglobin 13.5 g/dL (12.9-16.9); Mean Corpuscular HGB Conc 34.5 g/dL (31.6-35.5); Mean Corpuscular Hemoglobin 28.7 pg (28.0-33.3); Mean Corpuscular Volume 83.2 fL (83.0-100.0); Mean Platelet Volume 11.4 fL (9.4-12.4); Platelet Count 160 K/mcL (140-400); Red Cell Distribution Width 11.9 % (11.5-14.5)
[2018-12-22 04:20] LABS: Alanine Aminotransferase 10 Units/L (7-52); Albumin 4.4 g/dL (3.5-5.7); Albumin/Globulin Ratio 1.8 (1.1-2.2); Alkaline Phosphatase 47 Units/L (34-104); Aspartate Amino Transferase 10 Units/L (13-39); BUN/Creatinine Ratio 17 (6-26); Bilirubin,Total 1.1 mg/dL (0.3-1.0); Blood Urea Nitrogen 16 mg/dL (6-20); Calcium 9.6 mg/dL (8.6-10.3); Carbon Dioxide 30 mEq/L (23-29); Chloride 103 mEq/L (98-107); Globulin 2.4 g/dL (2.4-3.5); Glucose 93 mg/dL (70-105); Osmolality,Calculated 289 (280-300); Potassium 3.8 mEq/L (3.5-5.1); Sodium 139 mEq/L (136-145); Total Protein 6.8 g/dL (6.4-8.9); eGFR For Non-African Americans > 60 (> 60)
[2018-12-22 07:10] VITALS: BP 110/63
--- NOTE | 2018-12-22 08:40 | Discharge Summary ---
- NOTES TO OUTPATIENT PROVIDER Notes to Outpatient Provider: f/u with cardiology within 2 weeks. f/u with Neurology within 2 weeks. F/u with PCP within 2 weeks. Date of Encounter: 12/22/18 Time of Encounter: 08:37 - Discharge Diagnosis (1) POTS (postural orthostatic tachycardia syndrome) Priority: Primary Status: Acute (2) Seizure-like activity Priority: Primary Status: Acute (3) Hypophosphatemia Priority: Primary Status: Resolved (4) Tourette syndrome Priority: Secondary Status: Chronic (5) Hypokalemia Priority: Primary Status: Resolved (6) Elevated bilirubin Priority: Primary Status: Acute Hospital course: Mr. Painting is a 23 year old male with the past medical history of towards syndrome presented to ER with seizure-like activity after he passed out. 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 Patient was reportedly talking and standing with a coworker for about 20 minutes. According to coworker patient was nonresponsive for about 30 seconds and was altered for next one and half hour. Patient was noted to be sweating at the time. Patient was noted to have seizure-like activity with movement of arms and eye deviation to the right. However was noted to sit up on sternal rub and continue back into seizure-like activity after. Patient received 2 mg of Versed in ER and did not have any other seizure-like activity after. He was tachycardic in ER and slightly hypoxic. He had some difficulty breathing before the episode. There was no episode of incontinence of urine or stool or tongue biting noted. Patient had a workup done in ER with head CT which was unremarkable and BMP showing significant hypophosphatemia and hypokalemia. There is no history of seizures in past. Patient has been prescribed medication for correct which has been not taking for past few months. He denies IV drug use or other drug use. He denied taking any new medication During interview patient complains of some headache and feeling tired and sore. He denies any tingling numbness however previously he had some tingling in his arms when he came in. Denied any abdominal pain or chest pain or difficulty breathing. Denies urinary or bladder complaint. ER contacted neurology who recommended MRI and EEG. Patient was admitted for further management. Further workup showed normal EEG without epileptic waveforms, normal MRI brain without acute ischemic or hemorrhagic CVA. He also had an echocardiogram which showed normal ejection fraction without obvious valvular disease. His telemetric tracing was carefully revealed, which only showed several episodes of sinus tachycardia without malignant arrhythmia. An orthostatic vital sign were performed, patient heart rate increased from 84 to 131 while patient changes position from lying to standing, he also had slightly lightheadedness meanwhile. His signs and symptoms are suggestive for positional orthostatic tachycardia syndrome (POTS), he was started on low dose of metoprolol. All the test results and driving directions were discussed with patient and family in detail. Patient will be discharged home today, he was instructed to follow-up with PCP, cardiology, and neurology as scheduled. He was instructed to return or seek immediate medical assistance if symptoms return or worsen. Metoprolol dose can be titrated by PCP to achieve better heart rate control. Discharge discussed with: patient, family Time spent discussing smoking cessation with patient: more than 10 minutes - Time Spent with Patient Total time spent providing and/or coordinating discharge services: 45 mins. Greater than 30 minutes - Discharge Medications Prescriptions: Metoprolol XL (24 HR) Succ [Toprol Xl] 12.5 mg PO DAILY #30 tab.er.24h Home Medications: Metoprolol XL (24 HR) Succ [Toprol Xl] 12.5 mg PO DAILY #30 tab.er.24h 12/22/18 [Rx] Allergies/Adverse Reactions: Allergy/AdvReac Type Severity Reaction Status Date / Time No Known Allergies Allergy Verified 12/21/18 08:12 Date of admission: 12/20/18 06:29 Primary care physician: Saba Schwarz CNP Consults: 12/20/18 06:14 Consult to Neurology [CONS] Stat Consulting Provider: [facility] Reason for Consult: seizure-like activity Time Notified: 06:14 Call Completed: Yes 12/20/18 11:28 Consult to Interpret Exam [CONS] Routine Consulting Provider: Alfred Qureshi I Consult to Interpret Exam: Interpret EEG Anticipated date of discharge: 12/22/18 - Constitutional Vitals: Temp Pulse Resp BP Pulse Ox 97.6 F 66 18 110/63 97 12/22/18 07:03 12/22/18 07:03 12/22/18 07:03 12/22/18 07:03 12/22/18 07:25 General appearance: Present: cooperative, A&O X 3, answers questions appropriately Exam: PHYSICAL EXAMINATION: GENERAL APPEARANCE: The patient is alert, oriented and in no acute distress. HEENT: Head is normocephalic. The sinuses are nontender. Pupils are equal and reactive. The nares are patent. Oropharynx clear without lesions. NECK: Supple without lymphadenopathy. HEART: Regular rate and rhythm. LUNGS: No crackles or wheezes are heard. ABDOMEN: Soft, nontender, nondistended with good bowel sounds heard. Inguinal area is normal. EXTREMITIES: Without cyanosis, clubbing or edema. NEUROLOGICAL: Gross nonfocal. SKIN: Warm and dry without any rash. - Patient Status Disposition: Home, Self-Care Condition: Fair Functional capacity at discharge: independent ambulation Overall status at discharge: patient is progressing back to baseline - Discharge Instructions Follow Up With: NONE,PCP [Non-Partnered Physician] - - Diet and Activity Activity: increase activity as tolerated, other (suggets not drive for 1 month.) Diet: advance to your usual diet
[2018-12-22] MEDS ORDERED: Metoprolol XL (24 HR) Succ 25 MG TAB.ER.24H PO SCH (09:00)
--- NOTE | 2018-12-25 14:04 | Electrocardiograph Report ---
[address] [place], [place] [address] Test Date: 2018-12-20 Pat Name: Cj Painting Department: [id number] Room: 3B23 Gender: M Disability Attorney: : 1995 Requested By: Kilo Machado Order Number: [id number] Reading MD: Diana Loomis Measurements Intervals [place] Rate: 143 P: 83 ME: 108 QRS: -69 QRSD: 109 T: 77 QT: 380 QTc: 587 Interpretive Statements Sinus tachycardia Incomplete right bundle branch block Electronically Signed On 12-25-2018 14:03:19 EST by Diana Loomis
== END 2018-12-22 10:14 | disposition home or self-care (01) ==
LOC: 2SOUTHHOLD 05:02 → EMEROOARM 05:02 → SUATTDRO 06:29 → 2SOUTHHOLD 07:00 → 3BNU 18:06
PROVIDERS: ADMIT Pediatrics; ATTEND Internal Medicine

== ENCOUNTER 2021-07-02 06:09 | Inpatient (IN) ==
[2021-07-02] MEDS ORDERED: Ondansetron 4 MG/2 ML VIAL IVP PRN (07:08)
[2021-07-02] MEDS ORDERED: Naloxone 0.4 MG/ML INJ IVP PRN (07:08)
[2021-07-02] MEDS ORDERED: *HR* LORazepam 2 MG/ML VIAL IVP PRN (07:10)
[2021-07-02] MEDS ORDERED: Potassium Phosphate 44 MEQ in 0.9 % Sodium Chloride 250 ML IVPB ONE (07:11)
[2021-07-02] MEDS: *HR* Heparin 5,000 UNIT/ML VIAL SQ SCH ×2 (13:31→22:11)
[2021-07-02] MEDS: levETIRAcetam 250 MG TABLET PO SCH (18:13)
[2021-07-02] MEDS: Acetaminophen 325 MG TABLET PO PRN (23:47)
[2021-07-03 05:43] LABS: Basophils % 0.6 %; Eosinophils # 0.1 K/mcL (0.0-0.6); Eosinophils % 1.5 %; Hematocrit 38.7 % (37.5-50.1); Hemoglobin 13.4 g/dL (12.9-16.9); Immature Granulocytes % 0.3 % (0-4); Lymphocytes # 1.2 K/mcL (0.6-4.6); Lymphocytes % 34.4 %; Mean Corpuscular HGB Conc 34.6 g/dL (31.6-35.5); Mean Corpuscular Volume 86.6 fL (83.0-100.0); Mean Platelet Volume 11.9 fL (9.4-12.4); Monocytes # 0.5 K/mcL (0.0-1.3); Monocytes % 15.9 %; Neutrophils # 1.6 K/mcL (1.6-8.9); Platelet Count 131 K/mcL (140-400); Red Blood Count 4.47 M/mcL (4.19-5.50); Red Cell Distribution Width 12.3 % (11.5-14.5); Segmented Neutrophils % 47.3 %; White Blood Count 3.4 K/mcL (4.3-11.1)
[2021-07-03] MEDS: levETIRAcetam 250 MG TABLET PO SCH ×2 (05:44→17:20)
[2021-07-03] MEDS: *HR* Heparin 5,000 UNIT/ML VIAL SQ SCH ×3 (05:44→21:41)
[2021-07-03 06:02] LABS: BUN/Creatinine Ratio 13 (6-26); Blood Urea Nitrogen 14 mg/dL (6-20); Calcium 9.1 mg/dL (8.6-10.3); Carbon Dioxide 27 mEq/L (23-29); Chloride 105 mEq/L (98-107); Glucose 78 mg/dL (70-105); Magnesium 1.9 mg/dL (1.6-2.6); Osmolality,Calculated 287 (280-300); Potassium 4.2 mEq/L (3.5-5.1); Sodium 139 mEq/L (136-145); eGFR For African Americans > 60 (> 60); eGFR For Non-African Americans > 60 (> 60)
[2021-07-03] MEDS: Acetaminophen 325 MG TABLET PO PRN ×2 (08:03→17:23)
[2021-07-03] MEDS ORDERED: 0.9 % Sodium Chloride 1,000 ML IVC SCH (10:45)
[2021-07-03 11:05] LABS: Alanine Aminotransferase 16 Units/L (7-52); Albumin 4.4 g/dL (3.5-5.7); Albumin/Globulin Ratio 2.2 (1.1-2.2); Alkaline Phosphatase 41 Units/L (34-104); Aspartate Amino Transferase 14 Units/L (13-39); Bilirubin,Direct 0.4 mg/dL (0.0-0.2); Bilirubin,Indirect 1.8 mg/dL (0.0-1.0); Bilirubin,Total 2.2 mg/dL (0.3-1.0); Total Protein 6.4 g/dL (6.4-8.9)
[2021-07-03] MEDS ORDERED: Vancomycin 1,250 MG/262.5 ML IV.SOLN IVPB ONE (11:25)
[2021-07-03] MEDS: cefTRIAXone 2,000 MG in Water for inj. (sterile) 10 ML IVP SCH (11:56)
[2021-07-03 12:15] LABS: Red Blood Cell,CSF < 2000 RBC/mcL
[2021-07-03 12:18] LABS: Appearance,CSF Clear (Clear)
[2021-07-03 12:43] LABS: Glucose,CSF 75 mg/dL (40-70); Total Protein,CSF 41 mg/dL (15-45)
[2021-07-03] MEDS: Acyclovir 650 MG in D5% in Water 100 ML IVPB SCH ×2 (14:57→21:40)
[2021-07-03] MEDS ORDERED: Acyclovir 500 MG in D5% in Water 100 ML IVPB SCH (16:00)
[2021-07-03] MEDS ORDERED: methylPREDNISolone 125 MG/2 ML VIAL IVP ONE (23:50)
[2021-07-03] MEDS ORDERED: Famotidine 20 MG/2 ML VIAL IVP ONE (23:50)
[2021-07-04] MEDS: cefTRIAXone 2,000 MG in Water for inj. (sterile) 10 ML IVP SCH (00:52)
[2021-07-04 01:04] LABS: Basophils % 0.7 %; Eosinophils % 0.7 %; Hematocrit 38.3 % (37.5-50.1); Hemoglobin 13.2 g/dL (12.9-16.9); Lymphocytes # 1.3 K/mcL (0.6-4.6); Lymphocytes % 43.1 %; Mean Corpuscular HGB Conc 34.5 g/dL (31.6-35.5); Mean Corpuscular Hemoglobin 29.7 pg (28.0-33.3); Mean Corpuscular Volume 86.3 fL (83.0-100.0); Mean Platelet Volume 11.1 fL (9.4-12.4); Monocytes # 0.4 K/mcL (0.0-1.3); Monocytes % 13.8 %; Neutrophils # 1.2 K/mcL (1.6-8.9); Platelet Count 118 K/mcL (140-400); Red Blood Count 4.44 M/mcL (4.19-5.50); Red Cell Distribution Width 11.9 % (11.5-14.5); Segmented Neutrophils % 41.7 %; White Blood Count 2.9 K/mcL (4.3-11.1)
[2021-07-04 01:24] LABS: Alanine Aminotransferase 14 Units/L (7-52); Albumin 4.1 g/dL (3.5-5.7); Albumin/Globulin Ratio 1.9 (1.1-2.2); Alkaline Phosphatase 39 Units/L (34-104); Aspartate Amino Transferase 14 Units/L (13-39); BUN/Creatinine Ratio 11 (6-26); Bilirubin,Total 1.3 mg/dL (0.3-1.0); Blood Urea Nitrogen 11 mg/dL (6-20); Calcium 8.4 mg/dL (8.6-10.3); Carbon Dioxide 24 mEq/L (23-29); Chloride 106 mEq/L (98-107); Globulin 2.2 g/dL (2.4-3.5); Glucose 72 mg/dL (70-105); Magnesium 1.8 mg/dL (1.6-2.6); Osmolality,Calculated 286 (280-300); Phosphorous 4.1 mg/dL (2.7-4.5); Potassium 3.9 mEq/L (3.5-5.1); Sodium 139 mEq/L (136-145); Total Protein 6.3 g/dL (6.4-8.9); eGFR For African Americans > 60 (> 60); eGFR For Non-African Americans > 60 (> 60)
[2021-07-04 02:20] LABS: Hepatitis B Surface Antigen Nonreactive (Nonreactive)
[2021-07-04 02:48] LABS: Hepatitis C Virus Antibody Nonreactive (Nonreactive)
[2021-07-04 02:49] LABS: Hepatitis B Core IgM Nonreactive (Nonreactive)
[2021-07-04 02:50] LABS: HIV-1&2 Antibody & p24 Ag Nonreactive (Nonreactive)
[2021-07-04 02:51] LABS: Hepatitis A Antibody IgM Nonreactive (Nonreactive)
[2021-07-04] MEDS: Acyclovir 650 MG in D5% in Water 100 ML IVPB SCH (04:28)
[2021-07-04] MEDS: *HR* Heparin 5,000 UNIT/ML VIAL SQ SCH (06:41)
[2021-07-04] MEDS: levETIRAcetam 250 MG TABLET PO SCH (06:42)
[2021-07-04 07:15] VITALS: BP 110/65; PULSE 93; TEMP 98.8; O2SAT 94
[2021-07-07 11:06] LABS: Enterovirus RNA Qual (PCR) NOT DETECTED
== END 2021-07-04 11:24 | disposition home or self-care (01) | DRG 101 ==
LOC: 3BNU → SUATTDRO 06:12
PROVIDERS: ADMIT Family Medicine; ATTEND Internal Medicine